=== PATIENT | male | born 1955 | race Caucasian/White ===

== ENCOUNTER 2025-02-24 05:55 | Inpatient (IN) ==
--- NOTE | 2025-02-19 08:41 | Anesthesiology Consultation ---
Date of Service February 19, 2025 Assessment & Plan (1) Encounter for pre-operative examination: - Infectious disease screening: Per assessment on 02/12/25- No known recent infectious disease contacts or current infectious disease symptoms. - S/P Left TCAR (01/21/25): Grade 2 view, MAC#3, ETT 7.5 at [facility]. No issues noted per post-op anesthesia progress note. - Preop testing: No recent/preop labs received. Per PAT dental secretary note, surgeon' s office indicated that they will not be updating preop labs prior to surgery from their perspective "since he just had this procedure done a few weeks ago." Most recent available labs are from 11/2024. Will update labs DOS. Chart Review Chart Review: Acceptable Risk for Surgery (pending preop labs DOS) and Patient NOT seen in Pre Admission Testing History Surgery Operation Date: 02/24/25 08:00 Proposed Procedures p Right Transcarotid Artery Revascularization - Roosevelt Smith MD Height/Weight Height: 6 ft 2 in Weight: 83.915 kg Allergies Allergy/AdvReac Type Severity Reaction Status Date / Time No Known Allergies Allergy Verified 02/12/25 10:12 Medications Home Medications Medication Instructions Recorded Confirmed Last Taken ascorbic acid (vitamin C) 500 mg 500 mg PO DAILY 01/15/25 02/12/25 6 Days Ago tablet (Vitamin C) ~01/15/25 aspirin 81 mg capsule 81 mg PO QAM 01/15/25 02/12/25 01/21/25 01:00 atorvastatin 40 mg tablet (Lipitor) 40 mg PO HS 01/15/25 02/12/25 01/21/25 04:00 cholecalciferol (vitamin D3) 100 1,000 unit PO DAILY 01/15/25 02/12/25 6 Days Ago mcg (4,000 unit) capsule ~01/15/25 clopidogrel 75 mg tablet (Plavix) 75 mg PO QAM 01/15/25 02/12/25 01/21/25 04:00 krill 500 mg-omega-3 150 mg-dha 45 1 cap PO Q OTHER DAY 01/15/25 02/12/25 6 Days Ago mg-epa 75 lb-aopjcux-gcaxg capsule ~01/15/25 (krill oil) levothyroxine 100 mcg tablet 100 mcg PO QAM 01/15/25 02/12/2525 02:00 metoprolol succinate 50 mg 50 mg PO QPM 01/15/25 02/12/25 01/21/25 04:30 tablet,extended release 24 hr multivitamin 1 tab PO DAILY 01/15/25 02/12/25 6 Days Ago ~01/15/25 tadalafil 10 mg tablet (Cialis) 10 mg PO DAILY PRN Sexual Activity 01/15/25 02/12/25 3 Months Ago ~10/21/24 vitamin B complex 1 cap PO DAILY 02/12/25 02/12/25 Unknown Past Medical History Medical History Carotid artery stenosis Vascular surgeon H&P 01/21/25: "His workup included a CTA of the head/neck which showed >60% stenosis of the left carotid artery and >65% stenosis on the right. He also had an MRI done at that time which was read as 70-80% stenosis on the right but only 40-50% stenosis on the left." Focal seizure (12/16/24) Possible TIA/stroke/seizure At wed in [place] (had mouth droop, right side paralyzed) > told he had a stroke that presented itself as a seizure- reason patient was on Keppra initially (since discontinued) Saw neurology (Dr. Higgins/Elio Roe)- told patient he had a focal seizure and possible migraine headache with aura and felt patient did not have a stroke > he ordered an MRA that found carotid stenosis/blockages All neuro symptoms have since resolved and patient has not had further s igns/symptoms of stroke or seizures Vascular surgeon H&P 01/21/25: "showed a focal area of seizure like activity in the left temporal area" Hematoma Left Groin s/p L TCAR "Healing and getting better" History of prostate cancer (05/2020) s/p brachytherapy History of TIA (transient ischemic attack) (12/16/24) Possible TIA/stroke/seizure HLD (hyperlipidemia) HTN (hypertension) Hx of brachytherapy (05/2020) Hx of colonic polyps Hx of Lyme disease (1983) Dx 1983, Had 10 weeks of penicillin 1985 Hypothyroidism Past Surgical History Surgical History History of transcarotid artery revascularization (TCAR) (01/21/25) Left Hx of colonoscopy with polypectomy Hx of prostate biopsy (05/2020) Prostate cancer Social History Smoking Status: Never smoker Do You Dip or Chew Tobacco: No Hx Alcohol Use: No Hx Substance Use: No substance use type: does not use Testing Laboratory Results 12/15/24 WBC 6.07 H/H 14.5/41.8 PLATELETS 115 SODIUM 135 POTASSIUM 4.0 CHLORIDE 102 CO2 22 BUN 10 CREATININE 0.88 GLUCOSE 91 PT 15.7 INR 1.2 01/21/25 GLUCOSE (POC) 150 T&S B+ Ab- Electrocardiogram Date: 12/15/24 NSR at 82bpm. NS STA. Chest X-Ray Date: 12/15/24 Mildly prominent interstitial markings periopherally which can be seen in mild interstitial edema although these could be chronic. Have no comparison chest x- ray. No other acute cardiopulmonary disease. *Subsequent Left TCAR performed at [facility] on 01/21/25*
[2025-02-24 06:42] LABS: Hematocrit (blood only) 45.3 % (42.0-52.0); Hemoglobin 15.7 g/dl (14.0-18.0); Immature Granulocytes # (auto) 0.01 K/uL (0.01-0.20); Immature Granulocytes % (auto) 0.2 %; Mean Corpuscular Hemoglobin 32.4 pg (25.0-34.0); Mean Corpuscular Volume 93.4 fL (80.0-100.0); Platelet Count 135 K/uL (130-400); RDW Standard Deviation 44.7 fL (36.4-46.3); Red Blood Count 4.85 M/uL (4.70-6.10); White Blood Count 5.76 K/ul (4.8-10.8)
[2025-02-24 07:09] LABS: Anion Gap 5.0 (3-11); Blood Urea Nitrogen 12.0 mg/dl (6-23); Calcium 9.4 mg/dl (8.6-10.3); Carbon Dioxide 31.0 mmol/L (21-32); Chloride 99.0 mmol/L (98-107); Creatinine Clr Calc Pharmacy 78.3 ml/min; Glucose 87.0 mg/dl (70-99(Fasting)); Potassium 3.8 mmol/L (3.5-5.1); Sodium 135.0 mmol/L (136-145)
[2025-02-24] MEDS ORDERED: ATROPINE SULFATE 0.1 MG/ML 10ML SYR IV PRN (07:15)
[2025-02-24] MEDS ORDERED: ONDANSETRON INJ 2 MG/ML 2 ML VIAL IV PRN ×2 (07:15→11:14)
[2025-02-24] MEDS ORDERED: NEOSTIGMINE METHYLSULFATE 1 MG/ML 10ML VIAL ONE (07:21)
[2025-02-24] MEDS ORDERED: GLYCOPYRROLATE 0.2 MG/ML VIAL ONE (07:21)
[2025-02-24] MEDS ORDERED: ONDANSETRON INJ 2 MG/ML 2 ML VIAL ONE (07:21)
[2025-02-24] MEDS ORDERED: LIDOCAINE 2% 2 ML VIAL/AMP(20MG/ML) INFIL ONE (07:21)
[2025-02-24] MEDS ORDERED: MIDAZOLAM HCL 1 MG/ML 2ML VIAL ONE (07:21)
[2025-02-24] MEDS ORDERED: ROCURONIUM BROMIDE 10 MG/ML 5 ML VIAL IV ONE ×2 (07:21→09:17)
[2025-02-24] MEDS ORDERED: DEXAMETHASONE SOD INJ 4 MG/ML VIAL ONE (07:21)
[2025-02-24] MEDS ORDERED: PROPOFOL IV EMULSION 10 MG/ML 20 ML VIAL IV ONE (07:21)
[2025-02-24 07:22] LABS: INR 1.2 (0.9-1.1); Partial Thromboplastin Time 28 Seconds (21-31); Prothrombin Time 12.4 Seconds (9.0-12.0)
[2025-02-24] MEDS ORDERED: HEPARIN SOD (PORCINE) 1000 UNIT/ML ONE (07:27)
--- NOTE | 2025-02-24 07:30 | History & Physical Report ---
Date of Service February 24, 2025 Assessment & Plan (1) Carotid artery stenosis: Plan: patient admitted for a right tcar. I have discussed the risks options and benefits of the procedure with the patient. The patient understands the risks options and benefits and agrees to the procedure. Laterality: bilateral Qualified Code(s): I65.23 - Occlusion and stenosis of bilateral carotid arteries History of Present Illness Chief Complaint: Right internal carotid artery stenosis Primary Care Provider: YOLANDA DUENAS We had the pleasure of seeing Mr. Castillo today at our vascular surgery clinic. As you know, he is a very pleasant 69 year old male with history of hypertension, prostate cancer, erectile dysfunction, vertebrobasilar and carotid artery stenosis who presents for evaluation of TIA symptoms 23 days ago. Patient was in [place] at a family member's wedding, when he suddenly developed a headache and decreased peripheral vision. He is unsure if it was both eyes. He also states at that time, he was trying to serve himself salad and his arm kept involuntarily moving and then became completely paralyzed. At that time, he was also noted to have right facial droop and although he could think clearly he states "words would not come out" when he tried to talk. He denies any episodes like this in the past. Denies any numbness, tingling of any extremity or his face. Denies any weakness of the right lower extremity or left side. Denies any weakness of his face. States he was never confused/had aphasia, it was only dysarthria. He was taken to the hospital by ambulance for further evaluation. His workup included a CTA of the head/neck which showed >60% stenosis of the left carotid artery and >65% stenosis on the right. He also had an MRI done at that time which was read as 70-80% stenosis on the right but only 40-50% stenosis on the left. He also got an EEG given there was initial concern for seizure like activity and it showed a focal area of seizure like activity in the left temporal area. Patient states he is pretty active at baseline and can hike up to 4 miles with no problem. He denies any chest pain, SOB. He plays pickleball at least 3 times a week. He does state in October he had a similar episode of peripheral vision changes while playing pickleball but states he pushed through and kept playing and it went away. He also had a similar episode regarding his vision about a year ago. He has been followed by ophthalmology for this. He does not have a protein chemist but states his family doctor follows his cardiac health and he has never had a problem. He was told to get a stress test after this recent TIA happened to make sure nothing else was contributing to the symptoms. He has not scheduled this yet. He is right handed and independent on ADLs. He is on a baby aspirin but not on a statin as he states his cholesterol levels have always been normal. He is on Keppra since he had the episode and has been following up with neurology. He had his left tcar performed and was uneventful. He is now admitted for a right tcar. Allergies Allergy/AdvReac Type Severity Reaction Status Date / Time No Known Allergies Allergy Verified 02/24/25 06:25 Home Medications Medication Instructions Recorded Confirmed Type ascorbic acid (vitamin C) 500 mg 500 mg PO DAILY 01/15/25 02/24/25 History tablet (Vitamin C) aspirin 81 mg capsule 81 mg PO QAM 01/15/25 02/24/25 History atorvastatin 40 mg tablet (Lipitor) 40 mg PO HS 01/15/25 02/24/25 History cholecalciferol (vitamin D3) 100 1,000 unit PO DAILY 01/15/25 02/24/25 History mcg (4,000 unit) capsule clopidogrel 75 mg tablet (Plavix) 75 mg PO QAM 01/15/25 02/24/25 History krill 500 mg-omega-3 150 mg-dha 45 1 cap PO Q OTHER DAY 01/15/25 02/24/25 History mg-epa 75 lm-komxuyc-zglwh capsule (krill oil) levothyroxine 100 mcg tablet 100 mcg PO QAM 01/15/25 02/24/25 History metoprolol succinate 50 mg 50 mg PO QPM 01/15/25 02/24/25 History tablet,extended release 24 hr multivitamin 1 tab PO DAILY 01/15/25 02/24/25 History tadalafil 10 mg tablet (Cialis) 10 mg PO DAILY PRN Sexual Activity 01/15/25 02/24/25 History vitamin B complex 1 cap PO DAILY 02/12/25 02/24/25 History Past Med/Surg History Problem List Encounter for pre-operative examination Carotid artery stenosis Medical History Hematoma Left Groin s/p L TCAR "Healing and getting better" History of TIA (transient ischemic attack) (12/16/24) Possible TIA/stroke/seizure Carotid artery stenosis Vascular surgeon H&P 01/21/25: "His workup included a CTA of the head/neck which showed >60% stenosis of the left carotid artery and >65% stenosis on the right. He also had an MRI done at that time which was read as 70-80% stenosis on the right but only 40-50% stenosis on the left." Hx of Lyme disease (1983) Dx 1983, Had 10 weeks of penicillin 1985 Hx of brachytherapy (05/2020) Focal seizure (12/16/24) Possible TIA/stroke/seizure At wedding in [place] (had mouth droop, right side paralyzed) > told he had a stroke that presented itself as a seizure- reason patient was on Keppra initially (since discontinued) Saw neurology (Dr. Higgins/Elio Roe)- told patient he had a focal seizure and possible migraine headache with aura and felt patient did not have a stroke > he ordered an MRA that found carotid stenosis/blockages All neuro symptoms have since resolved and patient has not had further signs/symptoms of stroke or seizures Vascular surgeon H&P 01/21/25: "showed a focal area of seizure like activity in the left temporal area" HLD (hyperlipidemia) HTN (hypertension) Hx of colonic polyps History of prostate cancer (05/2020) s/p brachytherapy Hypothyroidism Surgical History History of transcarotid artery revascularization (TCAR) (01/21/25) Left Hx of colonoscopy with polypectomy Hx of prostate biopsy (05/2020) Prostate cancer Social History Smoking Status: Never smoker Second Hand Exposure: No; Do You Dip or Chew Tobacco: No; Tobacco Cessation Education Requested by Patient: No Hx Alcohol Use: No Hx Substance Use: No Preferred Language: Serbian Communication Ability: Effective Instructor Nurse Required: No Beliefs That Will Affect Care: None Current Living Situation: Alone Other Information That Helps Us Care for You: No Feels Safe at Home: Yes Safety Concerns: Feels Safe At This Time Assistive Devices: Contacts Review of Systems All systems reviewed & are unremarkable except as noted in HPI & below Physical Exam Physical Exam: General-NAD, cooperative Cardiovascular- HR 63. BP 130/88 on left and 128/88 on right. Heart has a RRR. Pulmonary-Lungs are clear Abd exam is benign Extremities-Warm, well perfused bilateral upper and lower extremities. Palpable radial and dorsalis pedis pulses bilaterally 2+. BUE and BLE are sensory intact with 5/5 motor strength. Neuro- AAOx3, cooperative. No aphasia or dysarthria. No facial droop. Extremity exam as above. CN II-XII grossly intact. Results & Data Vital Signs (Past 12 Hours) Vital Signs Temp Pulse Resp BP BP Pulse Ox O2 Del Method 02/24/25 06:41 36.5 C 56 L 18 178/100 H 176/97 H 99 Room Air
[2025-02-24] MEDS: CEFAZOLIN 2,000 MG/15 ML SYR IV SCH (08:07)
[2025-02-24] MEDS ORDERED: SUGAMMADEX SODIUM 200 MG/2 ML VIAL IV ONE (09:19)
[2025-02-24] MEDS ORDERED: PROTAMINE SULFATE 10 MG/ML 5 ML VIAL IV ONE (09:29)
[2025-02-24] MEDS: THROMBIN FOR SOLN 20000 UNIT KIT ONE (09:29)
[2025-02-24] MEDS: GELATIN SPONGE SZ 100 ONE (09:29)
[2025-02-24] MEDS: SURGICEL ABSORB HEMOSTAT 2IN X 14IN TOP ONE (09:29)
[2025-02-24] MEDS: VISIPAQUE IV PRN (09:30)
[2025-02-24] MEDS: ceFAZolin 330 MG/ML 1 GM VIAL ONE (09:44)
[2025-02-24] MEDS: BUPIVACAINE/EPINEPHRINE 0.5% MPF 1:200,000 30 ML VIAL ONE (09:44)
--- NOTE | 2025-02-24 09:54 | Procedure Note ---
Angiogram Post Procedure Fluoroscopy Time (minutes): 9.8 Radiation (mGy): 72 Contrast: 27 Post Operative Report Pre & Post Diagnosis Operation Date: 02/24/25 08:00 Pre-Op Diagnosis: Right Internal Carotid Artery Stenosis Post-Op Diagnosis: Right Internal Carotid Artery Stenosis I identified the patient and participated in the time-out.: Yes Procedure Operation Date: 02/24/25 08:00 Actual Procedures p Right Transcarotid Artery Revascularization(Right), Ultrasound localization of left common femoral vein- Roosevelt Smith MD Surgeon Roosevelt Smith MD Pumper Gager Apprentice Iglesia,PAC Estimated Blood Loss 20 Findings Consistent with Post-Op Diagnosis Specimens none Anesthesia Type General Complications none Disposition Accompanied Patient To Recovery: No Disposition: Recovery Room Indications This is a 69-year-old gentleman was found to have severe bilateral internal carotid artery stenosis. He underwent a uneventful left TCAR in the recent past. He is now admitted for a TCAR of the right carotid artery. I have discussed the risks options and benefits of the procedure with the patient. The patient understands the risks options and benefits and agrees to the procedure. Description of Procedure The patient was taken to the operating room and placed in supine position. After general anesthesia was accomplished the groins and right side of the neck and chest were prepped and draped in a sterile manner. Timeout was performed and the patient was identified. A transverse incision was made just above the clavicle between the heads of the sternocleidomastoid. This is carried down to where the common carotid artery was identified. It was isolated. It was slung with umbilical tape. Next the U stitch was placed in the common carotid artery with a 5-0 Prolene suture. Patient was given 8000 heparin at that time. Ultrasound was then used to localize the left common femoral vein. The vein was patent and compressed easily. Under ultrasound guidance the left common femoral vein was punctured and the venous sheath was inserted. This was aspirated and flushed with heparinized saline. ACT at that time was 297. Using micropuncture technique the common carotid artery was punctured. The micro sheath was inserted to 3.5 cm. Injection was then done showing the bifurcation. There was a significant lesion seen at the origin of the internal carotid artery on the left side. We then inserted the J-wire left and short of the lesion. The micro sheath was removed and the TCAR sheath was inserted. Once it was in place and held against the artery it was sutured to the chest wall and the incision edge. We then flushed the tubing appropriately. The venous return to was clamped onto the TCAR sheath. It was flushed through and then attached to the venous inflow sheath in the left groin. Sheath was checked for flow. The saline cleared nicely. The common carotid artery was then clamped. Flow reversal was instituted.The flow reversal was again checked for flow and found to have good flow after clamping. We inserted a 5.5 x 25 balloon backloaded on the wire. The wire could not be passed easily into the lesion. It was getting hung up in the distal common carotid artery. We then pulled the sheath back slightly and did another injection which showed a dissection of the common carotid artery just beyond the sheath. At that point the sheath was inadvertently pulled out of the puncture. The common carotid artery proximal was clamped with a DeBakey clamp. The 5-0 Prolene was then tied and hemostasis was obtained of the common carotid. We then repunctured the common carotid more proximal using the microneedle. The micro sheath was then inserted. Angiogram was then performed showing the entrance site and small dissection of the common and the bifurcation lesion. We then inserted an 035 Glidewire with a Kumpe catheter. A Kumpe was passed just beyond the sheath and the wire advanced up the common carotid artery true lumen. This passed easily through the common and into the internal carotid artery. Kumpe catheter was then passed upward into the internal and the wire exchanged to the 014 wire. The 4.5 balloon was then advanced to the lesion. Lesion was then predilated with a 4.5 mm balloon. Balloon was removed. We then inserted the 9/7 x 30 stent. This was deployed across the lesion without difficulty. The catheter was removed. We then inserted a 10 x 40 stent. This was overlapped with the previously placed stent and extended downward. The stent was deployed without difficulty. It covered most of the dissection area. We then extended this with a 10 x 48 to cover the instruments and dissection. The stent deployed without difficulty. the carotid was allowed to go 2 minutes with flow reversal. Completion angiogram was done at that time which showed a widely patent carotid stent. The completion angiogram showed the extensive areas completely covered with stent. The wire was removed. The venous return tubing was clamped and removed from the TCAR sheath. The blood was allowed to flow back into the venous system. The TCAR sheath was then removed after clamping the common carotid distally with Juan F tourniquet. The puncture site was then closed with a 5-0 Prolene suture. Both your valve and the DeBakey clamp removed. Good flow seen through the common carotid artery. The patient was given 25 mg of protamine. Hemostasis was noted of the puncture site. An ACT was then drawn. The ACT was 141. The sheath was pulled from the groin and pressure was applied. Wound was irrigated with saline solution. Adequate hemostasis was obtained of the wound. Once this was noted the wound was closed in usual fashion using a 3-0 Vicryl suture for the subcutaneous layer and a 4-0 subcuticular Vicryl suture for the skin edges. Dermabond was used for dressing. The patient left the operation room in satisfactory condition and tolerated the procedure well. All needle and sponge counts were correct at the end of the procedure. Yvonne Gil Pac assisted due to lack of resident availability and was necessary for positioning, draping, retraction, wound closure deep layers, subcutaneous tissue, and skin closure and was necessary for assisting with the case. I attest to the content of the Intraoperative Record and any orders documented therein. Any exceptions are noted below.
[2025-02-24] MEDS ORDERED: NON-FORMULARY MEDICATION (Tadalafil [Cialis] 10 mg Tablet) PO PRN (11:14)
[2025-02-24] MEDS ORDERED: STAT IV Infusion **Titration per Protocol STA (11:14)
[2025-02-24] MEDS ORDERED: PHENYLEPHRINE/NSS 25 MG/250 ML BAG IV PRN (11:14)
--- NOTE | 2025-02-24 11:19 | Critical Care Consultation ---
Date of Consultation February 24, 2025 Assessment & Plan (1) Carotid artery stenosis: (2) Post-operative state: (3) Hypothyroidism: (4) HTN (hypertension): (5) HLD (hyperlipidemia): Plan Tyrone Francis is a 69-year-old male with past medical history of hypothyroidism, HTN, HLD, focal seizures, remote lyme disease, and bilateral carotid disease; who presented to [facility] on 02/24/2025 for a planned right TCAR. Last month he underwent left TCAR. Bilateral carotid stenosis s/p right TCAR - Right TCAR on 02/24/2025 -SBP > 100; and MAP > 65. Not currently requiring vasopressors. -Antiplatelet therapy per vascular surgery. -Neurovascular checks per protocol Hypertension -Cont metoprolol -SBP > 100; and MAP > 65. Hyperlipidemia -Continue Lipitor when able to tolerate p.o. Hypothyroidism -Cont Synthroid when ready to tolerate p.o. TIPS but discharge home tomorrow by vascular surgeon. The ICU team will continue to monitor patient while he remains under ICU service. Thank you for the consult. Please call with questions. History of Present Illness Reason for Consultation: ICU monitoring status post right TCAR Attending Physician: Roosevelt Smith MD History of Present Illness 69-year-old male who underwent a left TCAR last month presenting today for an elective right TCAR. He is doing well postoperatively and denies any significant dysphagia, dyspnea or chest pain. He does endorse some mild pain around the incision site of his right TCAR. He also had a left femoral vein puncture which is bandaged and not bothering him. He currently has an arterial line in place along with peripheral IVs. He is conversant. He has no acute complaints. Allergies Allergy/AdvReac Type Severity Reaction Status Date / Time No Known Allergies Allergy Verified 02/24/25 06:25 Home Medications Medication Instructions Recorded Confirmed Type ascorbic acid (vitamin C) 500 mg 500 mg PO DAILY 01/15/25 02/24/25 History tablet (Vitamin C) aspirin 81 mg capsule 81 mg PO QAM 01/15/25 02/24/25 History atorvastatin 40 mg tablet (Lipitor) 40 mg PO HS 01/15/25 02/24/25 History cholecalciferol (vitamin D3) 100 1,000 unit PO DAILY 01/15/25 02/24/25 History mcg (4,000 unit) capsule clopidogrel 75 mg tablet (Plavix) 75 mg PO QAM 01/15/25 02/24/25 History krill 500 mg-omega-3 150 mg-dha 45 1 cap PO Q OTHER DAY 01/15/25 02/24/25 History mg-epa 75 [id number] capsule (krill oil) levothyroxine 100 mcg tablet 100 mcg PO QAM 01/15/25 02/24/25 History metoprolol succinate 50 mg 50 mg PO QPM 01/15/25 02/24/25 History tablet,extended release 24 hr multivitamin 1 tab PO DAILY 01/15/25 02/24/25 History tadalafil 10 mg tablet (Cialis) 10 mg PO DAILY PRN Sexual Activity 01/15/25 02/24/25 History vitamin B complex 1 cap PO DAILY 02/12/25 02/24/25 History Patient History Medical History Hematoma Left Groin s/p L TCAR "Healing and getting better" History of TIA (transient ischemic attack) (12/16/24) Possible TIA/stroke/seizure Carotid artery stenosis Vascular surgeon H&P 01/21/25: "His workup included a CTA of the head/neck which showed >60% stenosis of the left carotid artery and >65% stenosis on the right. He also had an MRI done at that time which was read as 70-80% stenosis on the right but only 40-50% stenosis on the left." Hx of Lyme disease (1983) Dx 1983, Had 10 weeks of penicillin 1985 Hx of brachytherapy (05/2020) Focal seizure (12/16/24) Possible TIA/stroke/seizure At wedding in [place] (had mouth droop, right side paralyzed) > told he had a stroke that presented itself as a seizure- reason patient was on Keppra initially (since discontinued) Saw neurology (Dr. Higgins/Elio Roe)- told patient he had a focal seizure and possible migraine headache with aura and felt patient did not have a stroke > he ordered an MRA that found carotid stenosis/blockages All neuro symptoms have since resolved and patient has not had further signs/symptoms of stroke or seizures Vascular surgeon H&P 01/21/25: "showed a focal area of seizure like activity in the left temporal area" HLD (hyperlipidemia) HTN (hypertension) Hx of colonic polyps History of prostate cancer (05/2020) s/p brachytherapy Hypothyroidism Surgical History History of transcarotid artery revascularization (TCAR) (01/21/25) Left Hx of colonoscopy with polypectomy Hx of prostate biopsy (05/2020) Prostate cancer Social History Smoking Status: Never smoker Second Hand Exposure: No; Do You Dip or Chew Tobacco: No; Tobacco Cessation Education Requested by Patient: No Hx Alcohol Use: No Hx Substance Use: No Preferred Language: Icelandic Communication Ability: Effective Marble Helper Required: No Beliefs That Will Affect Care: None Current Living Situation: Alone Other Information That Helps Us Care for You: No Feels Safe at Home: Yes Safety Concerns: Feels Safe At This Time Assistive Devices: Contacts Review of Systems Review of Systems: All systems reviewed & are unremarkable except as noted in HPI & below Physical Exam Physical Exam: VITALS: Reviewed. WEIGHT/BMI reviewed. GEN: Healthy appearing, well-developed, NAD. PSYCH: Good Judgment. AOx3. Normal memory, mood, and affect. HEENT -Head: NC/AT; -Eyes: PERRL, EOMI. No discharge or redn ess; -Mouth and throat: MMM. Normal gums, muc waqas, palate,. Good dentition. NECK: Supple, with no masses. Right TCAR site without hematoma or bleeding. CV: RRR, no m/r/g. LUNGS: CTAB, no w/r/c. ABD: Soft, NT/ND, NBS, no masses or organomegaly. : Paula in place draining yellow clear urine. SKIN: Warm, well perfused. No skin rashes or abnormal lesions. MSK: No deformities, Normal gait. EXT: No clubbing, cyanosis, or edema. Groin access site without hematoma or bleeding. NEURO: Face symmetric, speech clear, following commands. Normal muscle strength and tone. No focal deficits. Results & Data Results & Data Vital Signs (Past 12 Hours) Vital Signs Temp Pulse Resp BP BP BP Pulse Ox 02/24/25 10:40 36.3 C L 55 L 12 112/55 L 96 02/24/25 10:30 71 12 116/56 L 99 07/07/25 10:20 78 20 117/58 L 99 02/24/25 10:10 85 16 105/56 L 98 02/24/25 10:03 36.0 C L 89 14 127/87 98 02/24/25 06:41 36.5 C 56 L 18 178/100 H 176/97 H 99 O2 Del Method O2 Flow Rate 02/24/25 10:40 Room Air 02/24/25 10:30 Room Air 02/24/25 10:20 Room Air 02/24/25 10:10 Room Air 02/24/25 10:03 Oxymask 4 02/24/25 06:41 Room Air Coding Level of Care Code 61735 INT INP/OBS CARE MIN Diagnoses Bilateral carotid artery stenosis I65.23 Laterality: bilateral Post-operative state Z98.890 Hypothyroidism, unspecified type E03.9 Hypothyroidism type: unspecified Primary hypertension I10 Hypertension type: primary hypertension Hyperlipidemia, unspecified hyperlipidemia type E78.5 Hyperlipidemia type: unspecified (1) Carotid artery stenosis Laterality: bilateral Qualified Code(s): I65.23 - Occlusion and stenosis of bilateral carotid arteries (3) Hypothyroidism Hypothyroidism type: unspecified Qualified Code(s): E03.9 - Hypothyroidism, unspecified (4) HTN (hypertension) Hypertension type: primary hypertension Qualified Code(s): I10 - Essential (primary) hypertension (5) HLD (hyperlipidemia) Hyperlipidemia type: unspecified Qualified Code(s): E78.5 - Hyperlipidemia, unspecified
--- NOTE | 2025-02-24 11:25 | Anesthesiology Progress Note ---
Date of Service February 24, 2025 Anesthesia Post Procedure Vital Signs Vital Signs: Temp Pulse Resp BP BP BP Pulse Ox 02/24/25 10:40 36.3 C L 55 L 12 112/55 L 96 02/24/25 10:30 71 12 116/56 L 99 02/24/25 10:20 78 20 117/58 L 99 02/24/25 10:10 85 16 105/56 L 98 02/24/25 10:03 36.0 C L 89 14 127/87 98 02/24/25 06:41 36.5 C 56 L 18 178/100 H 176/97 H 99 O2 Del Method O2 Flow Rate 02/24/25 10:40 Room Air 02/24/25 10:30 Room Air 02/24/25 10:20 Room Air 02/24/25 10:10 Room Air 02/24/25 10:03 Oxymask 4 02/24/25 06:41 Room Air Pain Intensity Right Neck: Pain Intensity: 3 Transfer of Care Handoff Completed per policy Notes Mental Status: alert / awake / arousable Patient Amnestic to Procedure: Yes Nausea / Vomiting: adequately controlled Pain: adequately controlled Airway Patency, RR, SpO2: stable & adequate BP & HR: stable & adequate Hydration State: stable & adequate Anesthetic Complications: no major complications apparent and Pt Satisfied with anesthetic care
[2025-02-24] MEDS: SODIUM CHLORIDE 0.9% 1,000 ML IV SCH ×2 (12:23→12:27)
[2025-02-24] MEDS: COUGH DROP (SUGAR FREE) LOZ 24 LOZ/1 BOX BUCCAL PRN (19:24)
[2025-02-24] MEDS: METOPROLOL SUCC 50MG EXT REL TAB PO SCH (20:28)
[2025-02-24] MEDS: ATORVASTATIN 40 MG TAB PO SCH (20:31)
[2025-02-24 21:00] VITALS: BP 128/71
[2025-02-25] MEDS: LEVOTHYROXINE SODIUM 100 MCG TABLET PO SCH (06:01)
--- NOTE | 2025-02-25 08:07 | Critical Care Progress Note ---
Date of Service February 25, 2025 Assessment & Plan (1) Carotid artery stenosis: (2) Post-operative state: (3) Hypothyroidism: (4) HTN (hypertension): (5) HLD (hyperlipidemia): Plan Tyrone Francis is a 69-year-old male with past medical history of hypothyroidism, HTN, HLD, focal seizures, remote lyme disease, and bilateral carotid disease; who presented to [facility] on 02/24/2025 for a planned right TCAR. Last month he underwent left TCAR. Bilateral carotid stenosis s/p right TCAR - Right TCAR on 02/24/2025 -SBP > 100; and MAP > 65. Not currently requiring vasopressors. -Antiplatelet therapy per vascular surgery. -Neurovascular checks per protocol Hypertension -Cont metoprolol -SBP > 100; and MAP > 65. Hyperlipidemia -Continue Lipitor when able to tolerate p.o. Hypothyroidism -Cont Synthroid when ready to tolerate p.o. The ICU team will continue to monitor patient while he remains under ICU service. Thank you for the consult. Please call with questions. Admission and Anticipated Discharge Date Admission Date: February 24, 2025 Subjective No acute events overnight. Hemodynamically stable. Art line intact. Review of Systems Review of Systems: All systems reviewed & are unremarkable except as noted in HPI & below Physical Exam Physical Exam: VITALS: Reviewed. WEIGHT/BMI reviewed. GEN: Healthy appearing, well-developed, NAD. PSYCH: Good Judgment. AOx3. Normal memory, mood, and affect. HEENT -Head: NC/AT; -Eyes: PERRL, EOMI. No discharge or redn ess; -Mouth and throat: MMM. Normal gums, muc waqas, palate,. Good dentition. NECK: Supple, with no masses. Right TCAR site without hematoma or bleeding. CV: RRR, no m/r/g. LUNGS: CTAB, no w/r/c. ABD: Soft, NT/ND, NBS, no masses or organomegaly. : Paula in place draining yellow clear urine. SKIN: Warm, well perfused. No skin rashes or abnormal lesions. MSK: No deformities, Normal gait. EXT: No clubbing, cyanosis, or edema. Groin access site without hematoma or bleeding. NEURO: Face symmetric, speech clear, following commands. Normal muscle strength and tone. No focal deficits Results & Data Results & Data Vital Signs (Past 12 Hours) Vital Signs Temp Pulse Resp Pulse Ox 02/25/25 06:00 46 L 17 99 02/25/25 05:30 49 L 15 98 02/25/25 05:18 65 19 97 02/25/25 04:48 51 L 17 97 02/25/25 04:03 51 L 19 98 02/25/25 03:33 48 L 12 98 02/25/25 03:06 48 L 17 98 02/25/25 02:33 52 L 17 97 02/25/25 02:06 53 L 15 100 02/25/25 01:39 48 L 14 97 02/25/25 01:03 47 L 14 96 02/25/25 00:39 47 L 18 97 02/25/25 00:00 36.8 C 50 L 18 98 02/25/25 00:00 54 L 02/24/25 23:45 51 L 18 98 02/24/25 23:10 36.8 C 02/24/25 23:06 56 L 16 99 02/24/25 22:39 47 L 13 98 02/24/25 22:00 70 15 97 02/24/25 21:30 51 L 16 99 02/24/25 21:03 47 L 16 98 02/24/25 20:45 46 L 13 99 02/24/25 20:06 50 L 17 98 Coding Level of Care Code 75963 SUB INP/OBS CARE 09/14MIN Diagnoses Bilateral carotid artery stenosis I65.23 Laterality: bilateral Post-operative state Z98.890 Hypothyroidism, unspecified type E03.9 Hypothyroidism type: unspecified Primary hypertension I10 Hypertension type: primary hypertension Hyperlipidemia, unspecified hyperlipidemia type E78.5 Hyperlipidemia type: unspecified (1) Carotid artery stenosis Laterality: bilateral Qualified Code(s): I65.23 - Occlusion and stenosis of bilateral carotid arteries (3) Hypothyroidism Hypothyroidism type: unspecified Qualified Code(s): E03.9 - Hypothyroidism, unspecified (4) HTN (hypertension) Hypertension type: primary hypertension Qualified Code(s): I10 - Essential (primary) hypertension (5) HLD (hyperlipidemia) Hyperlipidemia type: unspecified Qualified Code(s): E78.5 - Hyperlipidemia, unspecified
[2025-02-25] MEDS: CLOPIDOGREL BISULFATE 75 MG TAB PO SCH (08:12)
[2025-02-25] MEDS: CHOLECALCIFEROL 25 MCG (1000 UNITS) TAB PO SCH (08:12)
[2025-02-25] MEDS: VITAMIN B COMPLEX TAB PO SCH (08:13)
[2025-02-25] MEDS: MULTIVITAMIN TAB PO SCH (08:13)
[2025-02-25] MEDS: ASPIRIN 81 MG ECTAB PO SCH (08:13)
[2025-02-25] MEDS: ASCORBIC ACID 500 MG TAB PO SCH (08:13)
[2025-02-25 09:00] VITALS: TEMP 97.9
[2025-02-25 11:35] VITALS: PULSE 60; RESP 20; O2SAT 96
--- NOTE | 2025-02-25 12:41 | Surgery Progress Note ---
Date of Service February 25, 2025 Assessment & Plan (1) Carotid artery stenosis: Plan: Pt now POD #1 after R TCAR, doing well post op. Discussed with Dr Smith. Will d/c home today. Admission and Anticipated Discharge Date Admission Date: February 24, 2025 Subjective 69 yo m POD #1 after R TCAR, seen in f/u today. Pt states feeling tired, but overall well. Denies PEÑALOZA, dizziness, chest pain, SOB, abd pain, N/V, unilateral weakness, vision changes, facial droop, slurred speech, other complaints. Review of Systems Review of Systems: All systems reviewed & are unremarkable except as noted in HPI & below Physical Exam Constitutional: WD/WN, vitals as above cooperative and comfortable; not in distress Neck: R neck supraclavicular incision C/D/I, mild local tenderness, swelling ecchymosis. Respiratory: normal respiratory effort, lungs clear to auscultation Auscultation: + diminished lung sounds Cardiovascular: Rate/Rhythm: regular rate and regular rhythm Vessels: posterior tibial pulses present, dorsalis pedis pulses present and radial pulses present; + abnormal peripheral pulses Extremities: normal capillary refill Gastrointestinal (Abdomen): Inspection/Auscultation: abdomen normal to inspection and normal bowel sounds Percussion/Palpation: abdomen soft; abdomen nontender Musculoskeletal: no cyanosis or clubbing, extremities motor strength 5/5 Skin: no rashes, warm and dry L groin puncture with minimal ecchymosis,tenderness noted. No hematoma. Neurologic: moves all extremities and awake; no focal motor deficits and not confused Psychiatric: A+Ox3, euthymic affect Results & Data Vital Signs (Past 12 Hours) Vital Signs Temp Pulse Resp Pulse Ox O2 Del Method 02/25/25 08:00 51 L 02/25/25 08:00 62 19 95 Room Air 02/25/25 07:15 48 L 22 98 02/25/25 07:00 36.6 C 02/25/25 06:00 46 L 17 99 02/25/25 05:30 49 L 15 98 02/25/25 05:18 65 19 97 02/25/25 04:48 51 L 17 97 02/25/25 04:03 51 L 19 98 02/25/25 03:33 48 L 12 98 02/25/25 03:06 48 L 17 98 02/25/25 02:33 52 L 17 97 02/25/25 02:06 53 L 15 100 02/25/25 01:39 48 L 14 97 02/25/25 01:03 47 L 14 96 02/25/25 00:39 47 L 18 97 02/25/25 00:00 36.8 C 50 L 18 98 02/25/25 00:00 54 L 02/24/25 23:45 51 L 18 98 02/24/25 23:10 36.8 C 02/24/25 23:06 56 L 16 99 (1) Carotid artery stenosis Laterality: bilateral Qualified Code(s): I65.23 - Occlusion and stenosis of bilateral carotid arteries
--- NOTE | 2025-02-25 12:42 | Discharge Summary ---
Date of Service February 25, 2025 Admission HPI Per Admitting Provider We had the pleasure of seeing Mr. Castillo today at our vascular surgery clinic. As you know, he is a very pleasant 69 year old male with history of hypertension, prostate cancer, erectile dysfunction, vertebrobasilar and carotid artery stenosis who presents for evaluation of TIA symptoms 23 days ago. Patient was in [place] at a family member's wedding, when he suddenly developed a headache and decreased peripheral vision. He is unsure if it was both eyes. He also states at that time, he was trying to serve himself salad and his arm kept involuntarily moving and then became completely paralyzed. At that time, he was also noted to have right facial droop and although he could think clearly he states "words would not come out" when he tried to talk. He denies any episodes like this in the past. Denies any numbness, tingling of any extremity or his face. Denies any weakness of the right lower extremity or left side. Denies any weakness of his face. States he was never confused/had aphasia, it was only dysarthria. He was taken to the hospital by ambulance for further evaluation. His workup included a CTA of the head/neck which showed >60% stenosis of the left carotid artery and >65% stenosis on the right. He also had an MRI done at that time which was read as 70-80% stenosis on the right but only 40-50% stenosis on the left. He also got an EEG given there was initial concern for seizure like activity and it showed a focal area of seizure like activity in the left temporal area. Patient states he is pretty active at baseline and can hike up to 4 miles with no problem. He denies any chest pain, SOB. He plays pickleball at least 3 times a week. He does state in October he had a similar episode of peripheral vision changes while playing pickleball but states he pushed through and kept playing and it went away. He also had a similar episode regarding his vision about a year ago. He has been followed by ophthalmology for this. He does not have a flaring machine operator but states his family doctor follows his cardiac health and he has never had a problem. He was told to get a stress test after this recent TIA happened to make sure nothing else was contributing to the symptoms. He has not scheduled this yet. He is right handed and independent on ADLs. He is on a baby aspirin but not on a statin as he states his cholesterol levels have always been normal. He is on Keppra since he had the episode and has been following up with neurology. He had his left tcar performed and was uneventful. He is now admitted for a right tcar. Admission Exam Per Admitting Provider General-NAD, cooperative Cardiovascular- HR 63. BP 130/88 on left and 128/88 on right. Heart has a RRR. Pulmonary-Lungs are clear Abd exam is benign Extremities-Warm, well perfused bilateral upper and lower extremities. Palpable radial and dorsalis pedis pulses bilaterally 2+. BUE and BLE are sensory intact with 5/5 motor strength. Neuro- AAOx3, cooperative. No aphasia or dysarthria. No facial droop. Extremity exam as above. CN II-XII grossly intact. Principal Diagnosis 1. s/p R TCAR 2. R ICA stenosis Discharge Exam Constitutional WD/WN, vitals as above cooperative and comfortable; not in distress Respiratory normal respiratory effort, lungs clear to auscultation Auscultation: + diminished lung sounds Cardiovascular Rate/Rhythm: regular rate and regular rhythm Vessels: posterior tibial pulses present, dorsalis pedis pulses present and radial pulses present; + abnormal peripheral pulses Extremities: normal capillary refill Gastrointestinal (Abdomen) Inspection/Auscultation: abdomen normal to inspection and normal bowel sounds Percussion/Palpation: abdomen soft; abdomen nontender Musculoskeletal no cyanosis or clubbing, extremities motor strength 5/5 Skin no rashes, warm and dry Neurologic moves all extremities and awake; no focal motor deficits and not confused Psychiatric A+Ox3, euthymic affect Discharge Data Allergies Allergy/AdvReac Type Severity Reaction Status Date / Time No Known Allergies Allergy Verified 02/24/25 06:25 Consultations 02/24/25 11:14 Consult Television Repairman Routine Procedures Performed Operation Date: 02/24/25 08:00 Actual Procedures p Right Transcarotid Artery Revascularization(Right) - Roosevelt Zheng MD Ordered Studies 02/24/25 07:07 EV angio carotid cerv RT Routine US EV guide vascular access Routine Hospital Course (1) Carotid artery stenosis: Pt now POD #1 after R TCAR, doing well post op. Discussed with Dr Zheng. Will d/c home today. Total Time Total Time Spent Total Time Spent (In Minutes): 0 Discharge Plan Discharge Items Patient Disposition: Home - Self-Care Reason For Visit: Right Internal Carotid Artery Stenosis Discharge Diagnosis: 1. s/p R TCAR 2. R ICA stenosis Activity: Per Instructions section Non-emergency contact: Primary Care Provider and Surgeon Call non-emergency contact if: you have any medication questions, your symptoms worsen, your pain is worsening, you have a fever, your wound has increased redness and your wound has increased drainage Follow-up/Referrals: YOLANDA DUENAS [Other] (Follow up with your PCP within 2 weeks) Roosevelt Zheng MD [Physician] - (Follow up with Dr Zheng or Yvonne Gil PA-C, in 2 weeks) Diet: Regular and Heart Healthy Addtl Attending Provider Instructions: SPECIAL CARE INSTRUCTIONS: Diet: * You may return to previous diet. Medications: * Continue to take Aspirin, plavix, and statin medications as directed. DO NOT STOP THESE MEDICATIONS WITHOUT SPEAKING TO DR ZHENG'S OFFICE Incision Care: * You may shower, but do not rub incision. You may let the warm soapy water run over it. Be sure to dry the incision well after bathing. * Do not shave directly over the incision until it is healed. * DO NOT IMMERSE THE INCISION IN A TUB/POOL/etc. UNTIL HEALED. Restrictions: * Do not drive for at least one week or if you are still taking any narcotic pain medication. * Do not lift anything heavier than a gallon of milk for one week after going home. Possible Complications: * Numbness - It is normal to have some numbness around the incision. Numbness can extend beyond the incision to areas of the neck, ear and face. The numbness is due to bruising of nerves during the surgery and will gradually improve over a period of months. * Hoarseness/Difficulty Speaking and Swallowing - The bruising of nerves in the neck can also cause a hoarse voice, difficulty speaking or swallowing. This may improve over time, HOWEVER, if it continues for more than a few days please contact our office ([phone]). * Excessive Swelling - There will be some swelling immediately after surgery which usually resolves within one week. If you notice that the swelling is getting worse, notify your surgeon ([phone]). * Drainage/Bleeding - If there is any drainage or bleeding, it should be a very small amount (less than a teaspoon per day). If you have excessive bleeding or drainage from the incision, call your surgeon ([phone]) right away. ACTIVATION OF EMERGENCY MEDICAL SYSTEM: Call 911, immediately, if you experience any of the following: Warning Signs and Symptoms of Stroke: * Sudden numbness or weakness of the face, arm or leg, especially on one side of the body * Sudden confusion, trouble speaking or understanding * Sudden trouble seeing in one or both eyes * Sudden trouble walking, dizziness, loss of balance or coordination * Sudden severe headache with no cause Do not delay calling 911 if you experience any warning signs or symptoms of a stroke. Delay in seeking medical attention may affect what treatments can be given to you. Risk Factors for Stroke: You can reduce your chances of stroke by working with your medical provider to adopt a healthy lifestyle. Some specific ways to lower your chance of stroke are: * If you are a smoker, now is the time to stop smoking cigarettes * If you are diabetic, improve the control of your blood sugars * Avoid excessive amounts of alcohol * Control high blood pressure * Lose weight if you are overweight * Be sure to lead an active lifestyle * Eat a healthy diet low in salt, cholesterol and fat You should know about other risk factors for stroke that you are unable to control. These include: * Age 55 years or older * Male gender * Certain racial groups: , or / * Family History of Stroke, Mini stroke or Heart Attack * Sickle Cell Disease You will be receiving a call from the Vascular Surgery Nurse after you are discharged. FOLLOW UP VISIT: It is important for you to keep your follow up appointments with your medical provider. Keep any scheduled doctor appointments. Pending Studies at Discharge: No Stand-Alone Forms: [facility], Smoking Cessation Medications and DC Order Prescriptions: Continued multivitamin Tablet 1 tab PO DAILY atorvastatin [Lipitor] 40 mg Tablet 40 mg PO HS metoprolol succinate 50 mg Tablet Extended Release 24 Hr 50 mg PO QPM clopidogrel [Plavix] 75 mg Tablet 75 mg PO QAM levothyroxine 100 mcg Tablet 100 mcg PO QAM ascorbic acid (vitamin C) [Vitamin C] 500 mg Tablet 500 mg PO DAILY tadalafil [Cialis] 10 mg Tablet 10 mg PO DAILY PRN (Reason: Sexual Activity) Rx Instructions: administer approximately 30min before sexual activity; do not use more than 1 dose per 24hrs cholecalciferol (vitamin D3) 100 mcg (4,000 unit) Capsule 1,000 unit PO DAILY krill oil [id number] mg Capsule 1 cap PO Q OTHER DAY aspirin 81 mg Capsule 81 mg PO QAM vitamin B complex Capsule 1 cap PO DAILY Discharge Orders: Discharge Order (Routine); Ordered 02/25/25 Ordered By: Yvonne Gil Admission Data Admit Date/Time: 02/24/25 07:32 Attending Provider: Roosevelt Zheng Admit Provider: Roosevelt Zheng Primary Care Provider: YOLANDA DUENAS Other Providers: Yandel Juarez; Haja Vora; Kirill Monsalve; Augustin Ybarra; Shaq Bell; Kandis Nieves; Fausto Mcmahan Other Interventions: Discharge Summary Assessment (RN) Last Done: 02/25/25 11:37
[2025-02-26] MEDS ORDERED: OMEGA-3 (PURIFIED FISH OIL) 1 GM CAP PO SCH (09:00)
== END 2025-02-25 12:27 | disposition home or self-care (01) | DRG 36 ==
LOC: ASU 05:55 → 1E 07:32
PROC: EV.TCAR (2025-02-24 08:00)